=== PATIENT | female | born 1980 | race Caucasian/White ===

== ENCOUNTER 2018-10-03 03:52 | Outpatient (CLI) | payer MEDICAID, SELFPAY ==
--- NOTE | 2018-10-03 10:25 | DI.COMBO_ITS ---
SYMPTOM/DIAGNOSIS: LT BREAST LUMP, N63.21 MAMMOGRAMS AND LEFT BREAST ULTRASOUND: Mammograms were interpreted according to the usual protocol including computer analysis with CAD system, tomosynthesis and C view imaging. The breast tissue is heterogeneously radiodense which lowers the sensitivity of the study. There is no dominant mass. There are no suspicious calcifications. There is a question regarding the possibility of a palpable abnormality in the left breast in this patient and further assessment with ultrasound is suggested. At ultrasound, there is a very well circumscribed, ovoid, 9 by 5 mm. area of sonolucency in the upper outer quadrant of the left breast at the 1 o'clock position approximately 5 cm. from the nipple which most likely represents a small fibroadenoma. SUMMARY: Findings most likely representing a small fibroadenoma in the upper outer quadrant of the left breast. A follow up ultrasound is suggested in 6 months for further review. Category 3. Breast density, Category C. MQSA ASSESSMENT OF FINDINGS: Probably benign. Six month follow-up recommended. Category 3. Patient will receive a letter notifying them of these results. Bi-RADS category C. The breasts are heterogeneously dense, which may obscure small masses.
== END 2018-10-03 04:12 ==
PROVIDERS: PCP Nurse Practitioner Adult Health; Visit Provider Nurse Practitioner Adult Health
DX: N63.21 Unspecified lump in the left breast, upper outer quadrant (principal); D24.2 Benign neoplasm of left breast
CPT/HCPCS: 76642; 77062; 77066; G0279

== ENCOUNTER 2021-11-05 01:45 | Outpatient (CLI) | payer OTHER, SELFPAY ==
--- NOTE | 2021-11-05 10:30 | DI.MAMMO_ITS ---
Exam(s) MAMMO SCREENING EXAM: MAMMO SCREENING CLINICAL HISTORY: SCREENING, Z12.31. TECHNIQUE: Bilateral full field digital CC and MLO mammographic images were obtained with 3D tomosyn thesis and utilizing computer aided detection (CAD). COMPARISON: Prior baseline diagnostic mammogram performed October 2018 was reviewed, as was the ultras ound performed at that time. This patient also underwent left breast ultrasound today. FINDINGS: Fibroglandular tissue pattern again noted be moderately dense, this somewhat decreasing the sensitivi ty of the mammogram for finding hidden underlying lesions. An area of asymmetric density posteriorly in the left breast is unchanged from 1019. There are no new obvious spiculated masses nor malignant appearing microcalcification groups. There is no significant architectural distortion nor skin thickening-retraction. IMPRESSION: Moderately dense fibroglandular tissue. No obvious radiographic evidence of malignancy nor significa nt change compared to the prior baseline mammogram of October 2018. Please note this patient also underwent complete left breast ultrasound today (see that separate dict ation). That study revealed benign findings. The previously described ultrasound finding at the 1 o 'clock position left breast has decreased in size and presently has the appearance of a benign microc ysts. Appropriate follow-up, as discussed by myself with the patient today, is to keep her on a yearly mamm ogram schedule, with earlier imaging if a self detected breast change is noted. BI-RADS Category 2 - Benign Findings Breast Density - Category C - Heterogeneously dense Breast density Category C or D implies that the patient has dense breast tissue. Dense breast tissue can make it harder to find cancer on a mammogram. Dense breast tissue is also associated with an incr eased risk of breast cancer. This information about the result of the mammogram report was provided to the patient to raise their awareness. Use this report when you speak with the patient about their risks for breast cancer, which includes their family history. At that time, you may recommend additional screening tests (Ultrasoun d or MRI) as these tests may add significant information. A negative radiographic report should not delay biopsy if a dominant or clinically suspicious mass is present. Up to ten percent of cancers are not identified on mammography. A negative report may reinforce clinical impression. Adenosis and dense breasts may obscure an underlying neoplasm. False positive reports average 6 to 10%. Patient will receive a letter notifying them of these results.
--- NOTE | 2021-11-05 11:00 | DI.US_ITS ---
Exam(s) US BREAST LT COMPLETE EXAM: US BREAST LT COMPLETE CLINICAL HISTORY: FIBROCYSTIC BREAST DISEASE, N60.19. TECHNIQUE: Complete ultrasound of the LEFT breast was performed including all 4 quadrants, the retro areolar region, and the ipsilateral axilla. COMPARISON: Prior ultrasound exam of October 2018 was reviewed. Baseline mammogram of 2019 as well as today's mammogram also reviewed. FINDINGS: The previously described 10 x 6 millimeter nodule at the 1 o'clock position has decreased in size, an d presently has the appearance of a simple benign microcyst which presently measures 4 x 3 millimeter s There are 2 other smaller microcysts also evident in the same quadrant, also at 1 o'clock position.. Most importantly, there no new solid lesions in all 4 quadrants nor in the retroareolar region. Scanning of the left axilla is negative for significant adenopathy IMPRESSION: Benign left breast ultrasound findings as above. Appropriate follow-up is to keep this patient on a yearly mammogram schedule, with earlier imaging if a self detected breast change is noted.. Findings are recommendations were discussed by myself with the patient today. BI-RADS Category 2 - Benign Findings Breast Density - Category C - Heterogeneously dense Breast density Category C or D implies that the patient has dense breast tissue. Dense breast tissue can make it harder to find cancer on a mammogram. Dense breast tissue is also associated with an incr eased risk of breast cancer. This information about the result of the mammogram report was provided to the patient to raise their awareness. Use this report when you speak with the patient about their risks for breast cancer, which includes their family history. At that time, you may recommend additional screening tests (Ultrasoun d or MRI) as these tests may add significant information. A negative radiographic report should not delay biopsy if a dominant or clinically suspicious mass is present. Up to ten percent of cancers are not identified on mammography. A negative report may reinforce clinical impression. Adenosis and dense breasts may obscure an underlying neoplasm. False positive reports average 6 to 10%. Patient will receive a letter notifying them of these results.
== END 2021-11-05 02:05 ==
PROVIDERS: PCP Nurse Practitioner Adult Health; Visit Provider Nurse Practitioner Adult Health
DX: Z12.31 Encounter for screening mammogram for malignant neoplasm of breast (principal); R92.8 Other abnormal and inconclusive findings on diagnostic imaging of breast; N60.12 Diffuse cystic mastopathy of left breast
CPT/HCPCS: 76642; 77063; 77067

== ENCOUNTER 2024-12-27 00:03 | Outpatient (CLI) | payer SELFPAY ==
--- NOTE | 2024-12-27 | DI.MAMMO_ITS ---
Exam(s) MAMMO SCREENING EXAM: MAMMO SCREENING CLINICAL HISTORY: Screening, Z12.31 TECHNIQUE: Bilateral full field digital CC and MLO mammographic images were obtained with 3D tomosynthesis and utilizing computer aided detection (CAD). COMPARISON: Comparison is made with prior examinations. FINDINGS: Masses/Architectural Distortion: No suspicious masses or areas of architectural distortion are present. There are several bilateral well-circumscribed nodules in the breasts. Microcalcifications: No suspicious pleomorphic-type are seen. Skin Thickening/Nipple Retraction: None. IMPRESSION: 1. No significant interval change with no specific features of malignancy noted. 2. Unless there is more urgent need, screening mammography is recommended, as per [place] [employer] guidelines. BI-RADS Category 2 - Benign Findings Breast Density - Category C - The breast are heterogeneously dense, which may obscure small masses. Breast density Category C or D implies that the patient has dense breast tissue. Dense breast tissue can make it harder to find cancer on a mammogram. Dense breast tissue is also associated with an increased risk of breast cancer. This information about the result of the mammogram report was provided to the patient to raise their awareness. Use this report when you speak with the patient about their risks for breast cancer, which includes their family history. At that time, you may recommend additional screening tests (Ultrasound or MRI) as these tests may add significant information. A negative radiographic report should not delay biopsy if a dominant or clinically suspicious mass is present. Up to ten percent of cancers are not identified on mammography. A negative report may reinforce clinical impression. Adenosis and dense breasts may obscure an underlying neoplasm. False positive reports average 6 to 10%. Patient will receive a letter notifying them of these results.
== END 2024-12-27 00:23 ==
LOC: DI 00:05
PROVIDERS: PCP Nurse Practitioner Adult Health; Visit Provider Nurse Practitioner Adult Health
DX: Z12.31 Encounter for screening mammogram for malignant neoplasm of breast (principal); R92.333 Mammographic heterogeneous density, bilateral breasts
CPT/HCPCS: 77063; 77067